=== PATIENT | male | born 1950 | race African-American/Black ===

== ENCOUNTER 2017-08-12 08:05 | Inpatient (IN) | payer MEDICARE, MEDICAID ==
[~2017-08-12] VITALS: Ht 167.6 cm; Wt 99.8 kg
[~2017-08-12 08:05] MED LIST: ALLO100T; ASPI-1158; CITA20TA19; CLOP75TA16; FAMO-135; GLUCO8; HYDR25TA; INDO-53; LISI-604; OMEP20CA10; SIMV40TA2; TOPXL5
[2017-08-12] MEDS ORDERED: SODIUM CHLORIDE 0.9% 1,000 ML IV ONE (08:29)
[2017-08-12] MEDS ORDERED: MORPHINE SULFATE 4 MG/ML CPJ (NOT FOR IM USE) IV STA (08:29)
[2017-08-12] MEDS ORDERED: FAMOTIDINE 20MG/2ML VIAL IV STA (08:29)
[2017-08-12] MEDS ORDERED: ONDANSETRON HCL 4MG/2ML VIAL IV STA (08:29)
[2017-08-12 08:48] LABS: BASOPHILS % 0.4 % (0.0-2.0); EOSINOPHILS % 2.8 % (0.0-5.0); HEMATOCRIT. 31.8 % (42.0-52.0); HEMOGLOBIN. 10.2 g/dL (14.0-18.0); LYMPHOCYTES % 24.7 % (20.0-50.0); MEAN CORPUSCULAR HEMOGLOBIN 23.5 pg (28.0-32.0); MEAN CORPUSCULAR VOLUME 73.1 fL (80.0-94.0); MONOCYTES % 11.8 % (2.0-8.0); NEUTROPHILS % 60.3 % (40.0-76.0); PLATELET 262 x1000/uL (130-400); RED BLOOD CELL COUNT 4.34 mill/uL (4.7-6.1); RED CELL DISTRIBUTION WIDTH 19.7 % (11.6-14.6)
[2017-08-12 08:57] LABS: PROTHROMBIN TIME 10.7 sec (9.4-11.6)
[2017-08-12 08:59] LABS: CHLORIDE 106 mEq/L (98-107)
[2017-08-12 09:07] LABS: CREATINE KINASE 207 IU/L (39-308)
[2017-08-12 09:09] LABS: CREATINE KINASE MB FRACTION 6.4 ng/mL (0.5-3.6)
[2017-08-12] MEDS ORDERED: VISCOUS LIDOCAINE 2% 15 ML UDC MM STA (09:41)
[2017-08-12] MEDS ORDERED: MAGNESIUM/ALUMINUM HYDROXIDE/SIMETHICONE 30ML UDC PO ONE (09:45)
[2017-08-12 09:51] LABS: CLARITY URINE CLEAR (CLEAR); COLOR URINE YELLOW (YELLOW); KETONES URINE NEGATIVE (NEGATIVE); LEUKOCYTE ESTERASE URINE NEGATIVE (NEGATIVE); NITRITE URINE NEGATIVE (NEGATIVE); OCCULT BLOOD URINE NEGATIVE (NEGATIVE); PROTEIN URINE NEGATIVE (NEGATIVE); SPECIFIC GRAVITY URINE 1.009 (1.005-1.030); UROBILINOGEN URINE 0.2 E.U./dL (0.2-1.0)
[2017-08-12 12:00] VITALS: BP 145/55
[2017-08-12 12:23] VITALS: BP 145/55
[2017-08-12] MEDS ORDERED: ONDANSETRON HCL 4MG/2ML VIAL IV PRN (12:30)
[2017-08-12] MEDS ORDERED: MORPHINE SULFATE 4 MG/ML CPJ (NOT FOR IM USE) IV PRN (12:30)
[2017-08-12] MEDS ORDERED: CLONIDINE 0.1MG TABLET PO PRN (12:30)
[2017-08-12] MEDS ORDERED: DEXTROSE 50% WATER 50ML SYRINGE IV PRN (12:30)
[2017-08-12 14:08] VITALS: BP 145/55
[2017-08-12] MEDS ORDERED: BLOOD SUGAR DIAGNOSTIC STRIP TEST SCH (16:45)
[2017-08-12] MEDS ORDERED: SUCRALFATE 1 G/10 ML UDC PO SCH (16:45)
[2017-08-12] MEDS ORDERED: INSULIN LISPRO 100 UNITS/ML SUBCUT SCH (17:15)
[2017-08-12] MEDS ORDERED: PANTOPRAZOLE 40MG DR TABLET PO SCH (21:00)
== END 2017-08-12 14:50 | disposition home or self-care (01) | DRG 683 ==
LOC: ER 08:43 → EDBEDREQ 10:47 → EDBEDREQSVC 10:57 → 5WST 11:27 → ENRESERV 11:27
PROVIDERS: ADMIT Internal Medicine; ATTEND Internal Medicine
DX: N17.9 Acute kidney failure, unspecified (principal); E44.1 Mild protein-calorie malnutrition; E11.22 Type 2 diabetes mellitus with diabetic chronic kidney disease; E11.51 Type 2 diabetes mellitus with diabetic peripheral angiopathy without gangrene; K52.9 Noninfective gastroenteritis and colitis, unspecified; D64.9 Anemia, unspecified; E66.9 Obesity, unspecified; E78.00 Pure hypercholesterolemia, unspecified; E78.5 Hyperlipidemia, unspecified; I25.10 Atherosclerotic heart disease of native coronary artery without angina pectoris; K21.9 Gastro-esophageal reflux disease without esophagitis; M10.9 Gout, unspecified; N18.9 Chronic kidney disease, unspecified; I12.9 Hypertensive chronic kidney disease with stage 1 through stage 4 chronic kidney disease, or unspecified chronic kidney disease; Z95.2 Presence of prosthetic heart valve; Z88.8 Allergy status to other drugs, medicaments and biological substances; Z79.899 Other long term (current) drug therapy; Z79.82 Long term (current) use of aspirin; Z71.3 Dietary counseling and surveillance; Z98.61 Coronary angioplasty status; Z68.35 Body mass index [BMI] 35.0-35.9, adult
CPT/HCPCS: 36415; 71045; 74176; 80053; 81003; 82550; 82553; 83690; 84484; 85025; 85610; 85730; 87086; 93005; 96361; 96374; 96375; 99291; J2270; J2405; J3490; J7030